=== PATIENT | female | born 1985 | race Caucasian/White ===

== ENCOUNTER 2016-10-29 09:13 | Emergency (ER) | payer OTHER ==
[~2016-10-29] VITALS: Ht 157.5 cm; Wt 54.5 kg
[2016-10-29] MEDS ORDERED: ZOLO100T PO (09:28)
[2016-10-29] MEDS ORDERED: MACR100C43 PO (09:28)
[2016-10-29] MEDS ORDERED: eye drop (09:28)
[2016-10-29 10:30] LABS: BASO % 0.5 % (0.0-1.0); EOS % 0.9 % (0.0-3.0); LARGE UNSTAINED CELL # 0.1 K/mm3 (0.0-0.4); LARGE UNSTAINED CELL % 1.9 % (0.0-4.0); LYMPH # 1.5 K/mm3 (1.5-6.5); LYMPH % 24.6 % (24.0-44.0); MEAN CORPUSCULAR HEMOGLOBIN 26.1 pg (27.0-33.0); MEAN CORPUSCULAR HGB CONC 33.1 g/dl (32.0-36.5); MONO # 0.3 K/mm3 (0.0-0.8); MONO % 5.3 % (0.0-5.0); NEUTROPHILS # 3.8 K/mm3 (1.8-7.7); NEUTROPHILS % 66.8 % (36.0-66.0); PLATELET COUNT, AUTOMATED 249 k/mm3 (150-450); RED CELL DISTRIBUTION WIDTH 16.6 % (11.5-14.5); WHITE BLOOD COUNT 5.7 K/mm3 (4.0-10.0)
[2016-10-29 11:57] VITALS: BP 125/73
== END 2016-10-29 12:20 | disposition home or self-care (01) ==
LOC: M ED 09:13
DX: O20.9 Hemorrhage in early pregnancy, unspecified (principal); O26.891 Other specified pregnancy related conditions, first trimester; R10.2 Pelvic and perineal pain; O99.611 Diseases of the digestive system complicating pregnancy, first trimester; K51.90 Ulcerative colitis, unspecified, without complications; O99.89 Other specified diseases and conditions complicating pregnancy, childbirth and the puerperium; H40.9 Unspecified glaucoma; Z3A.00 Weeks of gestation of pregnancy not specified; Z88.8 Allergy status to other drugs, medicaments and biological substances; Z79.899 Other long term (current) drug therapy; Z79.2 Long term (current) use of antibiotics

== ENCOUNTER → 2016-10-31 | Outpatient (CLI) | payer OTHER ==
[~2016-10-31] MED LIST: MACR100C43 PO; ZOLO100T PO; eye drop
== END ==
LOC: M LAB 13:54
PROVIDERS: ATTEND Physician Assistant
DX: O20.0 Threatened abortion (principal); Z3A.00 Weeks of gestation of pregnancy not specified

== ENCOUNTER 2016-11-02 07:52 | Emergency (ER) | payer OTHER ==
[~2016-11-02] VITALS: Ht 157.5 cm; Wt 59.0 kg
[2016-11-02 10:13] LABS: MEAN CORPUSCULAR HEMOGLOBIN 25.9 pg (27.0-33.0); MEAN CORPUSCULAR HGB CONC 32.7 g/dl (32.0-36.5); MEAN CORPUSCULAR VOLUME 79.1 fl (80.0-96.0); RED CELL DISTRIBUTION WIDTH 16.4 % (11.5-14.5); WHITE BLOOD COUNT 7.2 K/mm3 (4.0-10.0)
--- NOTE | 2016-11-02 10:43 | REP ---
Clinical: Pain and vaginal bleeding for viability. Technique: Transabdominal and transvaginal first trimester obstetrical ultrasound with color Doppler evaluation. Findings: Heterogeneous anteverted uterus measures 10.1 x 4.1 x 6.8 cm. The endometrial complex measures 13.6 mm thickness and includes heterogeneous likely hemorrhagic debris along with small cystic changes. There is no discrete gestational sac containing a yolk sac or pole. The maternal ovaries are normal in appearance and vascularity without torsion. Right ovary measures 3.5 x 2.4 x 2.8 cm and includes 1.1 cm corpus luteal cyst; RI = 0.55. Left ovary measures 3.0 x 1.7 x 2.8 cm; RI = 0.53. No pelvic fluid or adnexal mass lesion. Impression: Heterogeneous likely hemorrhagic debris within the endometrial complex without discrete definable intrauterine . Differential diagnosis includes spontaneous and early . Correlation with serial HCG levels recommended and repeat ultrasound as necessary. Signed by Rashad Narvaez MD 11/02/2016 10:35 A
[2016-11-02 12:15] VITALS: BP 126/68
== END 2016-11-02 12:24 | disposition home or self-care (01) ==
LOC: M ED 07:52
DX: O20.0 Threatened abortion (principal); O99.341 Other mental disorders complicating pregnancy, first trimester; F41.9 Anxiety disorder, unspecified; F32.9 Major depressive disorder, single episode, unspecified; O99.611 Diseases of the digestive system complicating pregnancy, first trimester; K51.90 Ulcerative colitis, unspecified, without complications; Z88.8 Allergy status to other drugs, medicaments and biological substances; Z79.899 Other long term (current) drug therapy; Z3A.00 Weeks of gestation of pregnancy not specified

== ENCOUNTER → 2016-11-09 | Outpatient (CLI) | payer OTHER | LOC: M SMT 15:54 | PROVIDERS: ATTEND Advanced Practice Midwife | DX: O20.0 Threatened abortion (principal); Z3A.00 Weeks of gestation of pregnancy not specified ==

== ENCOUNTER → 2017-01-28 | Outpatient (CLI) | payer OTHER ==
[2017-01-28 18:23] LABS: BASO % 0.2 % (0.0-1.0); EOS # 0.1 10^3/uL (0.0-0.50); EOS % 0.7 % (0.0-3.0); IMMATURE GRANULOCYTE % 0.3 % (0-0); LYMPH # 1.2 10^3/uL (1.5-6.5); LYMPH % 13.1 % (24.0-44.0); MEAN CORPUSCULAR HEMOGLOBIN 25.1 pg (27.0-33.0); MEAN CORPUSCULAR HGB CONC 31.5 g/dl (32.0-36.5); MEAN CORPUSCULAR VOLUME 79.7 fl (80.0-96.0); MONO # 0.4 10^3/uL (0.0-0.8); MONO % 4.7 % (0.0-5.0); NEUTROPHILS # 7.3 10^3/uL (1.8-7.7); PLATELET COUNT, AUTOMATED 302 10^3/uL (150-450); RED CELL DISTRIBUTION WIDTH 14.6 % (11.5-14.5); WHITE BLOOD COUNT 9.1 10^3/uL (4.0-10.0)
[2017-01-31 11:39] LABS: HBsAg Prenatal NEGATIVE (NEGATIVE)
== END ==
LOC: M SMT 15:19
PROVIDERS: ATTEND Specialist
DX: Z3A.15 15 weeks gestation of pregnancy (principal)

== ENCOUNTER → 2017-02-09 | Outpatient (CLI) | payer OTHER ==
--- NOTE | 2017-02-09 14:39 | REP ---
OB ULTRASOUND: Real-time sonographic evaluation of the gravid uterus performed. There is a single living intrauterine gestation. Estimated gestational age 18 week 5 days. EDC 07/08/2017. Today's measurements indicate appropriate growth. BPD 42 mm = 18 weeks 5 days, 49th percentile HC 154 mm = 18 weeks 2 days, 39th percentile AC 142 mm = 19 weeks 4 days, 68th percentile Femur length 27 mm = 18 weeks 1 day, 37th percentile HC/AC ratio 1.08 within normal range. Estimated weight 261 grams, 52nd percentile. Cervix is closed and measures 3.8 cm in length. heart rate 133 beats per minute. SEEN/GROSSLY UNREMARKABLE Lateral ventricles Yes Posterior fossa Yes Upper lip Yes Four-chamber heart No LVOT Yes RVOT No Stomach Yes Cord insertion Yes Three vessel cord Yes Kidneys No Bladder Yes Spine No position: Breech. Placenta: Posterior and grade 0 with no previa or abruption. Amniotic fluid: Within normal limits. Signed by Adrian Solano MD 02/10/2017 09:15 A
== END ==
LOC: M SMT 09:55
PROVIDERS: ATTEND Specialist
DX: Z34.82 Encounter for supervision of other normal pregnancy, second trimester (principal); Z3A.18 18 weeks gestation of pregnancy

== ENCOUNTER 2017-02-19 01:14 | Emergency (ER) | payer OTHER ==
[~2017-02-19] VITALS: Ht 157.5 cm; Wt 58.2 kg
[2017-02-19] MEDS ORDERED: PRENTAB16 PO (01:32)
[2017-02-19 07:09] LABS: MUCUS, URINE RFX SMALL (NEGATIVE); SPECIFIC GRAVITY UR AUTO RFX 1.013 (1.002-1.035); SQUAM EPITHELIAL CELL UR AURFX 5 /HPF (0-6); YEAST LIKE CELL URINE AUTO RFX SMALL
[2017-02-19] MEDS ORDERED: AZITHROMYCIN 250 MG TAB PO ONE (07:30)
[2017-02-19] MEDS ORDERED: cefTRIAXone SOD 250 MG VIAL (J0696) IM ONE (08:00)
[2017-02-19 08:12] VITALS: BP 116/61
== END 2017-02-19 08:13 | disposition home or self-care (01) ==
LOC: M ED 01:14
DX: O23.512 Infections of cervix in pregnancy, second trimester (principal); O23.42 Unspecified infection of urinary tract in pregnancy, second trimester; O23.592 Infection of other part of genital tract in pregnancy, second trimester; Z3A.20 20 weeks gestation of pregnancy
CPT/HCPCS: 81001; 87210; 87491; 87591; 96372; 99283; J0696

== ENCOUNTER → 2017-04-11 | Outpatient (CLI) | payer OTHER ==
[2017-04-11 11:26] LABS: BASO % 0.2 % (0.0-1.0); EOS % 0.3 % (0.0-3.0); HEMATOCRIT 27.4 % (36.0-47.0); HEMOGLOBIN 8.9 g/dl (12.0-16.0); IMMATURE GRANULOCYTE % 1.3 % (0-3.0); LYMPH # 2.4 10^3/uL (1.5-6.5); LYMPH % 26.9 % (24.0-44.0); MEAN CORPUSCULAR HEMOGLOBIN 24.9 pg (27.0-33.0); MEAN CORPUSCULAR HGB CONC 32.5 g/dl (32.0-36.5); MEAN CORPUSCULAR VOLUME 76.8 fl (80.0-96.0); MONO # 0.9 10^3/uL (0.0-0.8); NEUTROPHILS # 5.4 10^3/uL (1.8-7.7); NEUTROPHILS % 61.3 % (36.0-66.0); PLATELET COUNT, AUTOMATED 249 10^3/uL (150-450); RED BLOOD COUNT 3.57 10^6/uL (4.00-5.40); RED CELL DISTRIBUTION WIDTH 14.9 % (11.5-14.5); WHITE BLOOD COUNT 8.8 10^3/uL (4.0-10.0)
[2017-04-11 12:05] LABS: ALBUMIN 2.6 GM/DL (3.2-5.2); ALBUMIN/GLOBULIN RATIO 0.65 (1.00-1.93); ALKALINE PHOSPHATASE 84 U/L (45-117); ALT/SGPT 23 U/L (12-78); AST/SGOT 12 U/L (7-37); BILIRUBIN,DIRECT < 0.1 MG/DL (0.0-0.2); BILIRUBIN,TOTAL 0.2 MG/DL (0.2-1.0); BLOOD UREA NITROGEN 6 MG/DL (7-18); CREATININE FOR GFR 0.53 MG/DL (0.55-1.30); FERRITIN 6 NG/ML (8-252); GLOMERULAR FILTRATION RATE > 60.0 (>60); IRON (FE) 21 UG/DL (50-170); PERCENT SATURATION 4.4 % (13.2-45.0); TOTAL IRON BINDING CAPACITY 472 UG/DL (250-450); TOTAL PROTEIN 6.6 GM/DL (6.4-8.2)
[2017-04-13 08:18] LABS: QUANTIFERON GOLD TB Negative (Negative); TB Test (QFT) Antigen 0.04 IU/mL (.); TB Test (QFT) Mitogen >10.00 IU/mL (.); TB Test (QFT) Nil 0.04 IU/mL (.)
[2017-04-14 00:07] LABS: JC VIRUS DNA PCR WHOLE BLOOD Negative (Negative)
== END ==
LOC: M LAB 10:50
DX: K51.90 Ulcerative colitis, unspecified, without complications (principal)

== ENCOUNTER → 2017-04-12 | Outpatient (REF) | payer OTHER | LOC: M LAB REF 15:36 | DX: K51.90 Ulcerative colitis, unspecified, without complications (principal) ==

== ENCOUNTER → 2017-05-16 | Outpatient (CLI) | payer OTHER ==
[2017-05-16 13:27] LABS: BASO % 0.2 % (0.0-1.0); EOS % 0.2 % (0.0-3.0); HEMATOCRIT 29.2 % (36.0-47.0); HEMOGLOBIN 8.9 g/dl (12.0-16.0); IMMATURE GRANULOCYTE % 0.3 % (0-3.0); LYMPH # 1.4 10^3/uL (1.5-6.5); LYMPH % 16.8 % (24.0-44.0); MEAN CORPUSCULAR HEMOGLOBIN 23.1 pg (27.0-33.0); MEAN CORPUSCULAR HGB CONC 30.5 g/dl (32.0-36.5); MEAN CORPUSCULAR VOLUME 75.8 fl (80.0-96.0); MONO # 0.5 10^3/uL (0.0-0.8); MONO % 6.3 % (0.0-5.0); NEUTROPHILS # 6.5 10^3/uL (1.8-7.7); NEUTROPHILS % 76.2 % (36.0-66.0); PLATELET COUNT, AUTOMATED 256 10^3/uL (150-450); RED BLOOD COUNT 3.85 10^6/uL (4.00-5.40); WHITE BLOOD COUNT 8.6 10^3/uL (4.0-10.0)
[2017-05-16 14:06] LABS: GLUCOSE CHALLENGE TEST 1 HOUR 100 MG/DL (LESS THAN 140)
== END ==
LOC: M LAB 11:29
DX: Z34.82 Encounter for supervision of other normal pregnancy, second trimester (principal)

== ENCOUNTER → 2017-06-15 | Outpatient (REF) | payer OTHER | LOC: M LAB REF 17:02 | DX: Z34.83 Encounter for supervision of other normal pregnancy, third trimester (principal) | CPT/HCPCS: 87081 ==

== ENCOUNTER 2017-06-16 18:50 | Outpatient (CLI) | payer OTHER | END 2017-06-16 21:05 | disposition home or self-care (01) | LOC: M LDO 18:50 | DX: O26.893 Other specified pregnancy related conditions, third trimester (principal); O99.89 Other specified diseases and conditions complicating pregnancy, childbirth and the puerperium; H53.9 Unspecified visual disturbance; O47.03 False labor before 37 completed weeks of gestation, third trimester; Z3A.36 36 weeks gestation of pregnancy | CPT/HCPCS: 59025 ==

== ENCOUNTER → 2017-06-21 | Outpatient (CLI) | payer OTHER | LOC: M RAD 12:39 | DX: O26.843 Uterine size-date discrepancy, third trimester (principal) | CPT/HCPCS: 76816 ==

== ENCOUNTER → 2017-06-23 | Outpatient (CLI) | payer OTHER ==
[2017-06-23 17:01] LABS: BASO % 0.3 % (0.0-1.0); EOS # 0.1 10^3/uL (0.0-0.50); EOS % 0.7 % (0.0-3.0); HEMATOCRIT 28.6 % (36.0-47.0); HEMOGLOBIN 8.7 g/dl (12.0-15.5); IMMATURE GRANULOCYTE % 0.5 % (0-3.0); LYMPH # 1.3 10^3/uL (1.5-6.5); LYMPH % 17.7 % (24.0-44.0); MEAN CORPUSCULAR HGB CONC 30.4 g/dl (32.0-36.5); MEAN CORPUSCULAR VOLUME 72.4 fl (80.0-96.0); MONO # 0.6 10^3/uL (0.0-0.8); MONO % 8.5 % (0.0-5.0); NEUTROPHILS # 5.4 10^3/uL (1.8-7.7); NEUTROPHILS % 72.3 % (36.0-66.0); PLATELET COUNT, AUTOMATED 244 10^3/uL (150-450); RED BLOOD COUNT 3.95 10^6/uL (4.00-5.40); RED CELL DISTRIBUTION WIDTH 15.8 % (11.5-14.5); WHITE BLOOD COUNT 7.4 10^3/uL (4.0-10.0)
== END ==
LOC: M LAB 15:39
DX: Z34.83 Encounter for supervision of other normal pregnancy, third trimester (principal); Z3A.00 Weeks of gestation of pregnancy not specified

== ENCOUNTER 2017-07-03 05:37 | Inpatient (IN) | payer OTHER ==
[2017-07-03] MEDS ORDERED: OXYTOCIN 30 UNITS IN 0.9% NaCl 500ML IV BAG (J2590) As Ordered (05:47)
[2017-07-03] MEDS ORDERED: LR 1,000 ML IV (05:57)
[2017-07-03] MEDS ORDERED: FENTANYL 2MCG/ML ROPIVACAINE 0.2% IN 0.9% NACL 200ML IVBAG As Ordered (06:00)
[2017-07-03 06:11] LABS: HEMATOCRIT 29.9 % (36.0-47.0); HEMOGLOBIN 9.3 g/dl (12.0-15.5); MEAN CORPUSCULAR HEMOGLOBIN 21.7 pg (27.0-33.0); MEAN CORPUSCULAR HGB CONC 31.1 g/dl (32.0-36.5); MEAN CORPUSCULAR VOLUME 69.9 fl (80.0-96.0); PLATELET COUNT, AUTOMATED 274 10^3/uL (150-450); RED BLOOD COUNT 4.28 10^6/uL (4.00-5.40); WHITE BLOOD COUNT 9.2 10^3/uL (4.0-10.0)
[2017-07-03] MEDS ORDERED: ONDANSETRON 4MG/2ML VIAL (J2405) IV (07:30)
[2017-07-03] MEDS ORDERED: ePHEDrine SULFATE 25 MG/5 ML(5MG/ML) SYRINGE IV (07:30)
[2017-07-03] MEDS ORDERED: REFRIGERATOR IV KEYS XX (07:30)
[2017-07-03] MEDS ORDERED: EPIDURAL COMMENT XX (07:30)
[2017-07-03] MEDS ORDERED: NALOXONE INJ 0.4 MG/1 ML VIAL (J2310) IV (07:30)
[2017-07-03] MEDS ORDERED: LACTATED RINGER'S 1000 ML IV (07:30)
[2017-07-03] MEDS ORDERED: diphenhydrAMINE INJ 50MG/ML VIAL (J1200) IV (07:30)
[2017-07-03] MEDS ORDERED: EPIDURAL/PCA KEYS XX (07:30)
[2017-07-03] MEDS ORDERED: FENTANYL/ROPIVACAINE/NACL BAG 200 ML EPIDURAL (07:30)
[2017-07-03 10:48] LABS: CORD GAS ABE V -4.8; CORD GAS HCO3 V 21.3 MEQ/L; CORD GAS PCO2 V 42.9 mmHg; CORD GAS PH V 7.314 UNITS; CORD GAS PO2 V 22.8 mmHg; CORD GAS SBC V 19.4 MEQ/L; CORD GAS TCO2 V 22.6 MEQ/L
[2017-07-03 10:51] LABS: CORD GAS ABE A -7.3; CORD GAS HCO3 A 19.8 MEQ/L; CORD GAS O2 SAT A 40.1 %; CORD GAS PCO2 A 45.7 mmHg; CORD GAS PH A 7.255 UNITS; CORD GAS PO2 A 20.5 mmHg; CORD GAS SBC A 17.3 MEQ/L; CORD GAS TCO2 A 21.2 MEQ/L
[2017-07-03] MEDS ORDERED: DOCUSATE SODIUM 100 MG CAP PO (11:30)
[2017-07-03] MEDS ORDERED: DIBUCAINE 1% OINTMENT 30GM TOP (11:30)
[2017-07-03] MEDS ORDERED: IBUPROFEN 800 MG TAB PO (11:30)
[2017-07-03] MEDS ORDERED: MEASLES,MUMPS,RUBELLA VACCINE INJ (MMR-II) (90707) SC (11:30)
[2017-07-03] MEDS ORDERED: METHYLERGONOVINE MALEATE 0.2 MG TAB PO (11:30)
[2017-07-03] MEDS: ACETAMINOPHEN 500 MG TAB PO ×2 (14:47→23:56)
[2017-07-03] MEDS: LACTATED RINGER'S 1000 ML IV (19:53)
[2017-07-03] MEDS: OXYTOCIN DRIP 30 UNITS in APPROPRIATE DILUENT 1 EA IV (19:53)
[2017-07-04 05:35] LABS: HEMATOCRIT 24.4 % (36.0-47.0); HEMOGLOBIN 7.4 g/dl (12.0-15.5); MEAN CORPUSCULAR HEMOGLOBIN 21.4 pg (27.0-33.0); MEAN CORPUSCULAR HGB CONC 30.3 g/dl (32.0-36.5); MEAN CORPUSCULAR VOLUME 70.5 fl (80.0-96.0); PLATELET COUNT, AUTOMATED 196 10^3/uL (150-450); RED BLOOD COUNT 3.46 10^6/uL (4.00-5.40)
[2017-07-04] MEDS: ACETAMINOPHEN 500 MG TAB PO (05:40)
[2017-07-04] MEDS: PRENATAL VITAMINS CHEWABLE TABLET PO (09:14)
[2017-07-04] MEDS: INFLUENZA QUADRIVALENT PF VACCINE 0.5ML SYRINGE (90686) IM (09:17)
[2017-07-04] MEDS: PERCOCET 5MG/325MG TAB PO (18:30)
[2017-07-04 20:16] LABS: IMMEDIATE SPIN CROSSMATCH 1 2
[2017-07-05] MEDS: PERCOCET 5MG/325MG TAB PO ×2 (00:37→10:40)
[2017-07-05 07:58] LABS: HEMATOCRIT 29.1 % (36.0-47.0); HEMOGLOBIN 8.9 g/dl (12.0-15.5); MEAN CORPUSCULAR HEMOGLOBIN 22.1 pg (27.0-33.0); MEAN CORPUSCULAR HGB CONC 30.6 g/dl (32.0-36.5); MEAN CORPUSCULAR VOLUME 72.4 fl (80.0-96.0); PLATELET COUNT, AUTOMATED 200 10^3/uL (150-450); RED BLOOD COUNT 4.02 10^6/uL (4.00-5.40); RED CELL DISTRIBUTION WIDTH 16.7 % (11.5-14.5); WHITE BLOOD COUNT 6.3 10^3/uL (4.0-10.0)
[2017-07-05] MEDS: RHOGAM 300 MCG (1500 IU) INJ (J2790) IM (08:38)
[2017-07-05] MEDS: PRENATAL VITAMINS CHEWABLE TABLET PO (10:25)
== END 2017-07-05 14:30 | disposition home or self-care (01) | DRG 775 ==
LOC: M LDO 05:37 → M LDI 05:52 → M OBS 13:39
PROVIDERS: Advanced Practice Midwife
PROC: 10E0XZZ Delivery of Products of Conception, External Approach (ICD-10-PCS; principal; 2017-07-03)
PROC: 0HQ9XZZ Repair Perineum Skin, External Approach (ICD-10-PCS; 2017-07-03)
PROC: 30253N1 (ICD-10-PCS; 2017-07-04)
DX: O69.81X0 Labor and delivery complicated by cord around neck, without compression, not applicable or unspecified (principal); Z37.0 Single live birth; Z3A.38 38 weeks gestation of pregnancy; O70.0 First degree perineal laceration during delivery; O99.03 Anemia complicating the puerperium; D64.9 Anemia, unspecified

== ENCOUNTER 2018-07-19 03:19 | Emergency (ER) | payer OTHER ==
[~2018-07-19] VITALS: Ht 154.9 cm; Wt 65.9 kg
[~2018-07-19 03:19] MED LIST changes: +IBUP-1114 PO; +MAPA500T2 PO; +OXYC1TAB23 PO; +PRENTAB16 PO; +ZOLO50TA PO
[2018-07-19] MEDS ORDERED: IBUP-1022 PO (04:27)
[2018-07-19] MEDS ORDERED: NORCO 5/325MG TABLET (BULK FOR ED) PO ONE (04:30)
[2018-07-19 04:39] VITALS: BP 118/80
--- NOTE | 2018-07-19 11:59 | REP ---
LEFT FOOT, FOUR VIEWS: HISTORY: Trauma. There is a nondisplaced intra-articular fracture of the base of the 5th metatarsal. There is no dislocation. IMPRESSION: Nondisplaced fracture of the base of the 5th metatarsal. Electronically Signed by Travis Hartmann MD 07/19/2018 12:02 P
--- NOTE | 2018-07-19 12:02 | REP ---
LEFT ANKLE, FOUR VIEWS: HISTORY: Trauma. There is a nondisplaced intra-articular fracture of the base of the 5th metatarsal. There is no dislocation. The ankle joint space is normal in appearance. An osteophyte is present on the posterior calcaneus. IMPRESSION: Nondisplaced fracture of the base of the 5th metatarsal. Electronically Signed by Travis Hartmann MD 07/19/2018 12:05 P
== END 2018-07-19 04:53 | disposition home or self-care (01) ==
LOC: M ED 03:19
DX: S92.355A Nondisplaced fracture of fifth metatarsal bone, left foot, initial encounter for closed fracture (principal); X50.9XXA Other and unspecified overexertion or strenuous movements or postures, initial encounter; Y92.018 Other place in single-family (private) house as the place of occurrence of the external cause; Z79.899 Other long term (current) drug therapy; Z88.8 Allergy status to other drugs, medicaments and biological substances

== ENCOUNTER → 2018-12-02 | Outpatient (REF) | payer OTHER ==
[~2018-12-02] MED LIST changes: +IBUP-1022 PO
== END ==
LOC: M LAB REF 09:04
PROVIDERS: ATTEND Physician Assistant
DX: R30.0 Dysuria (principal)

== ENCOUNTER 2019-08-23 21:58 | Emergency (ER) | payer OTHER ==
[~2019-08-23] VITALS: Ht 157.5 cm; Wt 59.1 kg
[2019-08-23 23:10] LABS: BASO % 0.3 % (0.0-1.0); EOS % 0.4 % (0.0-3.0); HEMATOCRIT 39.1 % (36.0-47.0); HEMOGLOBIN 12.1 g/dl (12.0-15.5); LYMPH # 1.3 10^3/uL (1.5-5.0); LYMPH % 16.7 % (24.0-44.0); MEAN CORPUSCULAR HEMOGLOBIN 24.6 pg (27.0-33.0); MEAN CORPUSCULAR HGB CONC 30.9 g/dl (32.0-36.5); MEAN CORPUSCULAR VOLUME 79.5 fl (80.0-96.0); MONO # 0.6 10^3/uL (0.0-0.8); MONO % 6.9 % (0.0-5.0); NEUTROPHILS % 75.4 % (36.0-66.0); PLATELET COUNT, AUTOMATED 288 10^3/uL (150-450); RED BLOOD COUNT 4.92 10^6/uL (4.00-5.40)
[2019-08-23 23:34] LABS: ALBUMIN 3.6 GM/DL (3.2-5.2); BILIRUBIN,DIRECT 0.1 MG/DL (0.0-0.2); BILIRUBIN,TOTAL 0.4 MG/DL (0.2-1.0); TOTAL PROTEIN 7.6 GM/DL (6.4-8.2)
--- NOTE | 2019-08-24 00:29 | REPVR ---
PROCEDURE INFORMATION: Exam: US First Trimester, Transabdominal Exam date and time: 08/24/2019 12:14 AM Age: 34 years old Clinical indication: Lmp or gestational age (in weeks): 4wks; Other: Vag bleeding; ; Additional info: with vag bleeding and cramping TECHNIQUE: Imaging protocol: Real-time transabdominal obstetrical ultrasound of the maternal pelvis and a first trimester , less than 14 weeks 0 days, with image documentation. COMPARISON: No relevant prior studies available. FINDINGS: Gestation: No intrauterine gestation is seen MATERNAL: Uterus: The uterus measures 8.4 cm in its cephalocaudad dimension and 4.5 x 6.1 cm in its AP and lateral dimensions transabdominal. The uterus measures 7.8 cm in its cephalocaudad dimension and 4.6 x 5.2 cm in its AP and lateral dimensions transvaginal. The endometrium measures 14 mm. No intrauterine gestational sac.. Cervix: Unremarkable. Right adnexa: The right ovary measures 1.9 x 1.8 x 1.4 cm with pulsatile blood flow. There is an adjacent thick wall cystic area measuring 16 mm with blood flow Left adnexa: The left ovary measures 1.9 x 3.1 x 1.5 cm. There is normal pulsatile blood flow Intraperitoneal space: No intraperitoneal free fluid. IMPRESSION: 1. No intrauterine gestational sac is identified. Findings may reflect recent spontaneous AB. Ectopic is not excluded. Serial beta hCG levels may be of benefit for further evaluation. 2. Thick walled cystic structure adjacent to the right ovary. If suspicion of ectopic persists, this may serve as a potential site. Electronically signed by: Nikolay Quintanilla On 08/24/2019 00:28:48 AM
[2019-08-24 01:16] VITALS: BP 122/77
--- NOTE | 2019-08-24 11:10 | ED PDOC ---
Post-Departure Follow-Up [facility] ob and [facility] fp faxed formal report of pelvis us for fu . Sabas Neal MD Aug 24, 2019 11:10
== END 2019-08-24 01:25 | disposition home or self-care (01) ==
LOC: M ED 21:58
DX: O26.851 Spotting complicating pregnancy, first trimester (principal); Z3A.00 Weeks of gestation of pregnancy not specified

== ENCOUNTER → 2019-08-26 | Outpatient (CLI) | payer OTHER | LOC: M LAB 11:09 | PROVIDERS: ATTEND Nurse Practitioner Family | DX: O20.9 Hemorrhage in early pregnancy, unspecified (principal) ==